=== PATIENT | male | born 1950 | race Caucasian/White ===

== ENCOUNTER → 2016-09-23 | Outpatient (CLI) | payer BC ==
[2016-09-23 15:52] LABS: BASOPHILS # (AUTO) 0.11 10*3/UL; EOSINOPHILS # (AUTO) 0.38 10*3/UL; EOSINOPHILS % (AUTO) 3.3 % (0-8); HEMATOCRIT 52.1 % (42.0-52.0); HEMOGLOBIN 17.6 g/dL (14.0-18.0); LYMPHOCYTES # (AUTO) 4.17 10*3/uL; MEAN CORPUSCULAR HEMOGLOBIN 32.5 PG (27-31); MEAN CORPUSCULAR HGB CONC 33.8 g/dL (33-37); MEAN CORPUSCULAR VOLUME 96.3 FL (80-90); MEAN PLATELET VOLUME 9.6 FL (7.4-12.2); MONOCYTES % (AUTO) 8.8 % (5-15); NEUTROPHILS # (AUTO) 5.73 10*3/UL; NEUTROPHILS % (AUTO) 50.1 % (50-80); RED BLOOD COUNT 5.41 10^6/uL (4.70-6.10)
[2016-09-23 15:55] LABS: PLATELET MORPHOLOGY COMMENT NORMAL MORPHOLOGY (NORM); RBC MORPHOLOGY COMMENT NORMAL MORPHOLOGY (NORM); WBC MORPHOLOGY COMMENT NORMAL MORPHOLOGY (NORM)
[2016-09-23 16:20] LABS: BLOOD UREA NITROGEN 13 mg/dL (7-22); BUN/CREATININE RATIO 16.25 (6-20); CALCIUM 9.1 mg/dL (8.7-10.7); CHOL/HDL RATIO 3.12 RATIO (0-4.0); EST GLOMERULAR FILTRATION > 60 (>60 ml/min/1.73m(2)); HDL CHOLESTEROL 48 mg/dL (40-150); SERUM ALBUMIN 4.4 g/dL (3.5-4.8); SERUM CHOLESTEROL 150 mg/dL (120-200)
== END ==
LOC: LAB 15:32
PROVIDERS: ATTEND Family Medicine
DX: C85.10 Unspecified B-cell lymphoma, unspecified site (principal); R06.02 Shortness of breath; R53.83 Other fatigue; F17.200 Nicotine dependence, unspecified, uncomplicated; Z12.5 Encounter for screening for malignant neoplasm of prostate
CPT/HCPCS: 36415; 80053; 80061; 83615; 84443; 85025; G0103

== ENCOUNTER → 2016-09-30 | Outpatient (CLI) | payer SELFPAY ==
--- NOTE | 2016-10-02 10:49 | DI ---
US ABDOMEN COMPLETE,09/30/2016 9:18 AM: Clinical History: Elevated liver enzymes. Previous Exam: None at this facility. Findings: Multiple grayscale and color Doppler sonographic images are obtained through the abdomen, and demonst rate a small hypoechoic area within the left lobe of the liver measuring 2.1 cm in diameter. This is not well characterized on this exam and does not appear to be a simple cyst as there appear to be angel e internal echoes. The left kidney is normal measuring 13.0 cm in length without hydronephrosis nor nephrolithiasis. The right kidney is also normal. The right kidney measures 12.7 cm in length. The gallbladder is unremarkable without stones nor posterior shadowing. The common bile duct measures 4 mm. The aorta is within normal limits. There is mild increased echogenicity of the liver diffusely. Impression: 1. Diffuse fatty infiltration of the liver. 2. 2.1 cm hypoechogenicity within the left lobe of the liver. This should be evaluated with [address]
== END ==
LOC: US 09:15
PROVIDERS: ATTEND Family Medicine
DX: D72.829 Elevated white blood cell count, unspecified (principal); K76.0 Fatty (change of) liver, not elsewhere classified; R74.8 Abnormal levels of other serum enzymes; F17.200 Nicotine dependence, unspecified, uncomplicated; Z85.72 Personal history of non-Hodgkin lymphomas
CPT/HCPCS: 76700

== ENCOUNTER → 2016-10-18 | Outpatient (CLI) | payer BC ==
--- NOTE | 2016-10-18 11:35 | DI ---
CT ABD W/WO CN AND PELVIS W/W0,10/18/2016 7:50 AM: Clinical History: Abdominal ultrasound abnormal. Previous Exam: Ultrasound abdomen performed September 30, 2016 Findings: Multiple helically acquired CT images are obtained through the abdomen and pelvis following the intra venous administration of 95 cc of Isovue 300, and demonstrate clear lungs. The liver, spleen, pancreas, adrenals and gallbladder are unremarkable. The urinary bladder is unremarkable. There is some mild prominence of the prostate. There is no free air nor free fluid. A few peripheral vascular calcifications are seen. There is no evidence of acute appendicitis. Hypoechoic area seen on the ultrasound within the left lobe of the liver is not seen on today's exam. There is no density differences seen on CT, and there is no abnormal enhancement. There is no mesenteric or retroperitoneal lymphadenopathy. Impression: There is no perceptible difference on noncontrast or postcontrast images in the region of the hypoech ogenicity seen on the prior ultrasound.
== END ==
LOC: CT 07:45
PROVIDERS: ATTEND Family Medicine
DX: D72.829 Elevated white blood cell count, unspecified (principal); R94.5 Abnormal results of liver function studies; Z85.72 Personal history of non-Hodgkin lymphomas
CPT/HCPCS: 74178